=== PATIENT | female | born 1940 | race Caucasian/White ===

== ENCOUNTER 2017-09-11 20:23 | Inpatient (IN) | payer OTHER ==
[~2017-09-11] VITALS: Ht 160 cm; Wt 95.5 kg
[~2017-09-11 20:23] MED LIST: AMLODIPINE-BEN1 EAC2 PO; BACTRIM,SEPT1 TABLET PO; CLINDAMYCIN HC300 MG PO; Cleocin PO; FORTAMET500 M1 PO; GLUCOPHAGE500 MG PO; IBUPROFEN800 MG PO; KEFLEX500 MG PO; LEVAQUIN750 MG PO; LEVOFLOXACIN750 MG PO; LOTREL 5/101 CAPSULE PO; Lotrel 5/10 PO; NovoLOG Pen 3 ml SC; PERCOCET 5/31 TABLET PO; Percocet 5/325,Endoc PO; Vancomycin IV
[2017-09-11 21:31] LABS: HEMATOCRIT 36.7 % (36.0-46.0); HEMOGLOBIN 12.3 G/DL (11.9-15.5); MCH 31.3 PG (29.0-34.0); MCHC 33.5 G/DL (30.0-36.0); MCV 93.4 FL (83-99); PLATELET COUNT 171 K/uL (156-360); RBC DIS.WIDTH-CV 12.4 % (11.8-14.6); RBC DIS.WIDTH-SD 42.6 % (39-53); RED BLOOD COUNT 3.93 M/uL (3.80-5.20)
[2017-09-11 21:44] LABS: CHLORIDE 105 mEq/L (99-109); POTASSIUM 4.1 mEq/L (3.7-5.4); SODIUM 139 mEq/L (136-147)
[2017-09-11 21:46] LABS: GLUCOSE 173 mg/dL (70-99)
[2017-09-11 21:50] LABS: ALKALINE PHOSPHATASE 182 IU/L (3-129); CREATININE 0.9 mg/dL (0.6-1.3); GFR ESTIMATE (CALCULATED) > 59 mL/min/
[2017-09-11 21:51] LABS: UREA NITROGEN (BUN) 22 mg/dL (9-23)
[2017-09-11 21:52] LABS: AST (GOT) 297 IU/L (2-34)
[2017-09-11 21:53] LABS: ALT (GPT) 162 IU/L (3-49)
[2017-09-12 00:14] LABS: LIPASE > 6000 U/L (1.0-51.0)
[2017-09-12 00:52] LABS: APPEARANCE CLEAR ((CLEAR)); BILIRUBIN NEGATIVE; BLOOD NEGATIVE; COLOR STRAW ((YELLOW)); GLUCOSE (STRIP) NEGATIVE; KETONES NEGATIVE; LEUKOCYTES NEGATIVE; NITRITE NEGATIVE; PROTEIN (STRIP) NEGATIVE; SPECIFIC GRAVITY 1.008 (1.000-1.030); UCUL ADDED? NO; UROBILINOGEN 0.2 MG/DL (0.2-1.0)
[2017-09-12 01:23] VITALS: BP 146/88
[2017-09-12 02:33] LABS: TRIGLYCERIDES 74 MG/DL (Normal: <150)
[2017-09-12 03:48] LABS: SERUM ETHYL ALCOHOL < 10 mg/dL
[2017-09-12 04:10] VITALS: BP 148/65
[2017-09-12 07:15] LABS: CHLORIDE 106 MEQ/L (99-109); CREATININE 0.8 MG/DL (0.6-1.3); GFR ESTIMATE (CALCULATED) > 59 mL/min/; GLUCOSE 211 mg/dL (70-99); LIPASE 1710 U/L (1.0-51.0); POTASSIUM 4.4 MEQ/L (3.7-5.4); SODIUM 139 MEQ/L (136-147); UREA NITROGEN (BUN) 17 mg/dL (9-23)
[2017-09-12 07:22] LABS: AMYLASE 469 IU/L (1-118)
[2017-09-12 08:12] VITALS: BP 137/82
[2017-09-12 12:08] LABS: ALBUMIN 3.9 G/DL (3.2-4.8); ALKALINE PHOSPHATASE 159 IU/L (3-129); ALT (GPT) 188 IU/L (3-49); AST (GOT) 192 IU/L (2-34); DIRECT BILIRUBIN 0.2 mg/dL (0.0-0.3); TOTAL BILIRUBIN 0.6 MG/DL (0.0-1.0); TOTAL PROTEIN 6.4 G/DL (6.4-8.3)
[2017-09-12 12:22] VITALS: BP 133/65
[2017-09-12 15:36] VITALS: BP 139/64
[2017-09-12 20:13] VITALS: BP 159/71
[2017-09-13 00:22] VITALS: BP 168/72
[2017-09-13 05:31] VITALS: BP 160/70
[2017-09-13 05:58] LABS: ALBUMIN 3.7 g/dL (3.2-4.8); CHLORIDE 108 mEq/L (99-109); POTASSIUM 3.9 mEq/L (3.7-5.4); SODIUM 140 mEq/L (136-147)
[2017-09-13 05:59] LABS: ALBUMIN 3.7 g/dL (3.2-4.8)
[2017-09-13 06:01] LABS: AMYLASE 146 IU/L (1-118)
[2017-09-13 06:04] LABS: CREATININE 0.8 mg/dL (0.6-1.3); GFR ESTIMATE (CALCULATED) > 59 mL/min/
[2017-09-13 06:05] LABS: UREA NITROGEN (BUN) 18 mg/dL (9-23)
[2017-09-13 06:06] LABS: CREATININE 0.8 mg/dL (0.6-1.3); GFR ESTIMATE (CALCULATED) > 59 mL/min/
[2017-09-13 06:07] LABS: ALT (GPT) 133 IU/L (3-49); UREA NITROGEN (BUN) 16 mg/dL (9-23)
[2017-09-13 06:08] LABS: DIRECT BILIRUBIN 0.2 mg/dL (0.0-0.3)
[2017-09-13 06:09] LABS: ALT (GPT) 138 IU/L (3-49); HEMATOCRIT 33.6 % (36.0-46.0); HEMOGLOBIN 10.9 G/DL (11.9-15.5); LIPASE 121 U/L (1.0-51.0); MCH 30.9 PG (29.0-34.0); MCHC 32.4 G/DL (30.0-36.0); MCV 95.2 FL (83-99); PLATELET COUNT 171 K/uL (156-360); RBC DIS.WIDTH-CV 12.6 % (11.8-14.6); RBC DIS.WIDTH-SD 43.8 % (39-53); RED BLOOD COUNT 3.53 M/uL (3.80-5.20); WHITE BLOOD COUNT 6.3 K/uL (4.1-10.2)
[2017-09-13 06:13] LABS: ALKALINE PHOSPHATASE 133 IU/L (3-129); ALKALINE PHOSPHATASE 135 IU/L (3-129); AST (GOT) 88 IU/L (2-34); AST (GOT) 89 IU/L (2-34); GLUCOSE 114 mg/dL (70-99); TOTAL BILIRUBIN 0.5 mg/dL (0.0-1.0)
[2017-09-13 08:14] VITALS: BP 117/57
[2017-09-13 15:11] VITALS: BP 135/65
[2017-09-14 00:24] VITALS: BP 128/62
[2017-09-14 05:57] LABS: HEMOGLOBIN 11.9 G/DL (11.9-15.5); MCH 31.1 PG (29.0-34.0); MCHC 32.2 G/DL (30.0-36.0); MCV 96.6 FL (83-99); PLATELET COUNT 177 K/uL (156-360); RBC DIS.WIDTH-CV 12.7 % (11.8-14.6); RBC DIS.WIDTH-SD 45.4 % (39-53); RED BLOOD COUNT 3.83 M/uL (3.80-5.20); WHITE BLOOD COUNT 5.2 K/uL (4.1-10.2)
[2017-09-14 06:15] LABS: LIPASE 87 U/L (1.0-51.0)
[2017-09-14 06:16] LABS: ALBUMIN 3.8 G/DL (3.2-4.8); ALT (GPT) 89 IU/L (3-49); CHLORIDE 110 MEQ/L (99-109); CREATININE 0.8 MG/DL (0.6-1.3); GFR ESTIMATE (CALCULATED) > 59 mL/min/; POTASSIUM 4.2 MEQ/L (3.7-5.4); SODIUM 141 MEQ/L (136-147); TOTAL BILIRUBIN 0.5 MG/DL (0.0-1.0); TOTAL PROTEIN 6.2 G/DL (6.4-8.3); UREA NITROGEN (BUN) 16 mg/dL (9-23)
[2017-09-14 06:48] LABS: AMYLASE 51 IU/L (1-118)
[2017-09-14 06:49] LABS: ALKALINE PHOSPHATASE 118 IU/L (3-129); AST (GOT) 52 IU/L (2-34); GLUCOSE 85 mg/dL (70-99)
[2017-09-14 08:04] VITALS: BP 117/58
[2017-09-14 15:55] VITALS: BP 147/60
[2017-09-14 19:59] VITALS: BP 150/74
== END 2017-09-14 20:03 | disposition home or self-care (01) | DRG 440 ==
LOC: EME → EDBD 20:23 → EME 20:23 → 2EAST 09-12 00:53 → EDOF 09-12 00:53 → 2EAST 09-12 01:17 → ENPENDDIS 09-14 19:20 → 2EAST 09-14 20:03
PROVIDERS: Internal Medicine; Internal Medicine Gastroenterology
DX: K85.10 Biliary acute pancreatitis without necrosis or infection (principal); K80.50 Calculus of bile duct without cholangitis or cholecystitis without obstruction; N28.1 Cyst of kidney, acquired; I10 Essential (primary) hypertension; E78.5 Hyperlipidemia, unspecified; E11.9 Type 2 diabetes mellitus without complications; F17.200 Nicotine dependence, unspecified, uncomplicated; E66.9 Obesity, unspecified; Z68.37 Body mass index [BMI] 37.0-37.9, adult; Z96.653 Presence of artificial knee joint, bilateral
CPT/HCPCS: 74177; 74183; 80048; 80053; 80076; 81003; 82150; 82565; 82948; 83690; 84478; 84520; 85027; 87641; 99281; 99285; G0480; J1200; J2270; J2405; J2930; J7030

== ENCOUNTER 2017-09-19 21:32 | Emergency (ER) | payer OTHER ==
[~2017-09-19] VITALS: Ht 160 cm; Wt 93.4 kg
[2017-09-19 21:37] VITALS: BP 170/78
[2017-09-19 22:29] LABS: HEMATOCRIT 35.5 % (36.0-46.0); HEMOGLOBIN 11.7 G/DL (11.9-15.5); MCH 31.1 PG (29.0-34.0); MCV 94.4 FL (83-99); PLATELET COUNT 194 K/uL (156-360); RBC DIS.WIDTH-CV 12.6 % (11.8-14.6); RBC DIS.WIDTH-SD 43.6 % (39-53); RED BLOOD COUNT 3.76 M/uL (3.80-5.20); WHITE BLOOD COUNT 5.6 K/uL (4.1-10.2)
[2017-09-19 22:45] LABS: CHLORIDE 107 mEq/L (99-109); POTASSIUM 3.9 mEq/L (3.7-5.4); SODIUM 140 mEq/L (136-147)
[2017-09-19 22:47] LABS: GLUCOSE 111 mg/dL (70-99)
[2017-09-19 22:51] LABS: CREATININE 0.9 mg/dL (0.6-1.3); GFR ESTIMATE (CALCULATED) > 59 mL/min/; UREA NITROGEN (BUN) 20 mg/dL (9-23)
[2017-09-19 22:54] LABS: LIPASE 107 U/L (1.0-51.0)
[2017-09-19 22:56] LABS: AMYLASE 81 IU/L (1-118)
[2017-09-19 23:06] LABS: APPEARANCE CLEAR ((CLEAR)); BILIRUBIN NEGATIVE; BLOOD NEGATIVE; COLOR STRAW ((YELLOW)); GLUCOSE (STRIP) NEGATIVE; KETONES NEGATIVE; LEUKOCYTES LARGE; NITRITE NEGATIVE; PROTEIN (STRIP) NEGATIVE; SPECIFIC GRAVITY 1.009 (1.000-1.030); UROBILINOGEN 0.2 MG/DL (0.2-1.0)
[2017-09-19 23:20] LABS: BACTERIA RARE /HPF; EPITHELIAL CELLS RARE /HPF; MUCUS NONE SEEN /LPF; RED BLOOD CELLS 0-5 /HPF (0-5); UCUL ADDED? YES; WHITE BLOOD CELLS 30-40 /HPF (0-5)
== END 2017-09-20 01:45 | disposition home or self-care (01) ==
LOC: EME → EDBD 21:32 → EME 09-20 01:45
PROVIDERS: Emergency Medicine
DX: S29.012A Strain of muscle and tendon of back wall of thorax, initial encounter (principal); R10.12 Left upper quadrant pain; V43.62XA Car passenger injured in collision with other type car in traffic accident, initial encounter; E11.9 Type 2 diabetes mellitus without complications; I10 Essential (primary) hypertension; Z96.652 Presence of left artificial knee joint; Z88.8 Allergy status to other drugs, medicaments and biological substances
CPT/HCPCS: 74177; 80048; 81003; 82150; 83690; 85027; 87086; 99281; 99285; J1200; J2930; J7040